=== PATIENT | male | born 1940 | race Caucasian/White ===

== ENCOUNTER 2017-10-16 18:07 | Observation (INO) | payer OTHER, MEDICARE ==
[~2017-10-16] VITALS: Ht 177.8 cm; Wt 100.0 kg
[2017-10-16] MEDS ORDERED: fentaNYL INJECTION 100 MCG/2 ML AMP ONE ×2 (18:15→18:42)
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
[2017-10-16] MEDS ORDERED: fentaNYL INJECTION 100 MCG/2 ML AMP IVP ONE ×2 (18:45)
[2017-10-16 19:17] LABS: HEMOGLOBIN 13.4 G/DL (13.3-17.7); MEAN PLATELET VOLUME 10.1 FL (7.4-10.4); RED BLOOD COUNT 4.5 10^6/uL (4.35-5.85); RED CELL DISTRIBUTION WIDTH 14.9 % (10.0-14.5)
[2017-10-16 19:28] LABS: ALANINE AMINOTRANSFERASE 38 U/L (0-55); ALBUMIN 3.9 GM/DL (3.2-4.5); ALKALINE PHOSPHATASE 97 U/L (40-136); BILIRUBIN,DIRECT 0.3 MG/DL (0.0-0.3); BILIRUBIN,INDIRECT 0.5 MG/DL; BILIRUBIN,TOTAL 0.8 MG/DL (0.1-1.0); BUN/CREATININE RATIO 15; CALCIUM 8.7 MG/DL (8.5-10.1); CARBON DIOXIDE 25 MMOL/L (21-32); CHLORIDE 103 MMOL/L (98-107); CREATININE SERUM 1.11 MG/DL (0.60-1.30); GFR ESTIMATED > 60; GLUCOSE 115 MG/DL (70-105); POTASSIUM 3.7 MMOL/L (3.6-5.0); SODIUM 138 MMOL/L (135-145); TOTAL PROTEIN 6.2 GM/DL (6.4-8.2)
[2017-10-16] MEDS ORDERED: LIDOCAINE 1% INJ 20 ML 20 ML VIAL ONE (19:53)
[2017-10-16] MEDS ORDERED: NS (IVPB) 100 ML ONE (19:54)
[2017-10-16] MEDS ORDERED: KETOROLAC 30 MG/ML VIAL IVP ONE (20:00)
[2017-10-16] MEDS ORDERED: LIDOCAINE 1% INJ 20 ML 20 ML VIAL INJ ONE (20:00)
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
[2017-10-16] MEDS ORDERED: NS 250 ML (IVPB) BAG IV ONE (21:00)
[2017-10-16] MEDS ORDERED: IOHEXOL 350 MG/ML 100 ML (OMNIPAQUE 350) VIAL IV ONE (21:00)
[2017-10-16] MEDS: CATHETER FLUSH 10 ML SYR IV PRN (21:00)
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
--- NOTE | 2017-10-16 21:08 | Diagnostic Imaging Report ---
PROCEDURE: CT lumbar spine without contrast. TECHNIQUE: Multiple contiguous axial images were obtained through the lumbar spine without the use of intravenous contrast. Sagittal and coronal reformations were then performed. INDICATION: Back pain There are no prior studies available for comparison. The reconstructed sagittal images show severe degenerative disc and bony disease throughout the lumbar spine. Specifically, there is narrowing of the disc spaces at every level with relative sparing of the L1-2 level. There is also sclerosis of the opposing surfaces of L2-L3, L4, L5, and S1. In addition, the axial images suggest that there is spinal stenosis at L2-3, L3-4, L4-5 and L5-S1. There is also narrowing of the neural foramen bilaterally at these levels, particularly at L5-S1. There is no significant central stenosis or nerve root encroachment at the L1-2 level. There does appear to be a mild (20%) compression deformity of L2. The age of this injury is indeterminate but this could be subacute in nature. If further evaluation is desired, then MRI would be recommended. No other acute bony abnormality is appreciated. There is no sign of a paraspinal mass. IMPRESSION: 1. 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 There is spinal stenosis at every level with the L5-S1 level the most significantly affected. 2. There is a mild compression deformity of L1. The age of this injury is indeterminate but this could be subacute in nature. If further study is desired, then MRI would be recommended. 3. There is no acute bony abnormality noted otherwise. Dictated by: Dictated on workstation # [id number]
[2017-10-16] MEDS ORDERED: HYDROmorphone 1 MG/ML (DILAUDID) 1 ML SYRINGE IV ONE (21:30)
--- NOTE | 2017-10-16 21:47 | Diagnostic Imaging Report ---
PROCEDURE: CT abdomen and pelvis with contrast. TECHNIQUE: Multiple contiguous axial images were obtained through the abdomen and pelvis after administration of intravenous contrast. INDICATION: Left-sided back pain. COMPARISON: There are no previous CT examinations available for comparison. FINDINGS: The liver is borderline enlarged. There is no focal mass involving the liver and the biliary tree does not appear abnormally distended. The gallbladder is surgically absent. The spleen, pancreas, adrenals, kidneys, aorta and inferior vena cava show no sign of an acute NV. The stomach is not well-distended and consequently difficult to assess. There is no pelvic mass or free fluid collection noted. There is diverticulosis of the sigmoid colon but there is no sign of acute diverticulitis. The urinary bladder and prostate gland are grossly unremarkable. The appendix was not well-visualized but there are no indirect signs of acute appendicitis. There are postsurgical changes involving each inguinal canal. There is no sign of a recurrent hernia. The bone windows showed no evidence for a fracture or for a destructive lesion. There is severe degenerative disc and bony disease involving the lumbar spine. The lung bases are clear. IMPRESSION: 1. There is no acute abnormality of the abdomen or pelvis. 2. The liver is borderline enlarged. 3. There is diverticulosis of the sigmoid colon without evidence for acute diverticulitis. Dictated by: Dictated on workstation # [id number]
[2017-10-16 22:29] LABS: BILIRUBIN,URINE NEGATIVE (NEGATIVE); CLARITY,URINE CLEAR; COLOR,URINE YELLOW; GLUCOSE, URINE (UA) NEGATIVE (NEGATIVE); KETONES,URINE NEGATIVE (NEGATIVE); LEUKOCYTE ESTERASE ,URINE NEGATIVE (NEGATIVE); NITRITE,URINE NEGATIVE (NEGATIVE); PH,URINE 5 (5-9); PROTEIN,URINE NEGATIVE (NEGATIVE); UROBILINOGEN,URINE NORMAL (NORMAL)
[2017-10-16 22:42] LABS: BACTERIA,URINE NEGATIVE /HPF; SQUAMOUS EPITHELIAL CELL,UR 0-2 /HPF
[2017-10-16] MEDS ORDERED: KETOROLAC 15 MG/ML VIAL IVP PRN (23:45)
[2017-10-16] MEDS ORDERED: HYDROmorphone 1 MG/ML (DILAUDID) 1 ML SYRINGE IV PRN (23:45)
[2017-10-16] MEDS ORDERED: ONDANSETRON 4 MG/2 ML (SDV) Z0FRAN IV PRN (23:45)
[2017-10-16] MEDS ORDERED: ACETAMINOPHEN 500 MG TAB (TYLENOL) PO PRN (23:45)
[2017-10-17] MEDS: 1/2 NS W/KCL 20 MEQ/L 1,000 ML IV SCH ×3 (00:10→21:28)
[2017-10-17 00:11] VITALS: BP 174/77
[2017-10-17] MEDS: HYDROmorphone 1 MG/ML (DILAUDID) 1 ML SYRINGE IV PRN ×4 (01:47→21:27)
[2017-10-17] MEDS ORDERED: NORT25CA PO (02:41)
[2017-10-17] MEDS ORDERED: HYDR25TA4 PO (02:41)
[2017-10-17] MEDS ORDERED: B-12 INJECTION (02:41)
[2017-10-17] MEDS ORDERED: ATOR40TA70 PO (02:41)
[2017-10-17] MEDS ORDERED: ROPI5TAB PO (02:41)
[2017-10-17] MEDS ORDERED: ASPI-999 PO (02:41)
[2017-10-17] MEDS ORDERED: DULO60CA6 PO (02:41)
[2017-10-17] MEDS ORDERED: TAMS0.4C2 PO (02:41)
[2017-10-17] MEDS ORDERED: CLOP75TA28 PO (02:41)
[2017-10-17] MEDS ORDERED: TIZA4CAP8 PO (02:41)
[2017-10-17] MEDS ORDERED: HYDR-34 PO (02:41)
[2017-10-17] MEDS ORDERED: LAMO100T PO (02:41)
[2017-10-17] MEDS ORDERED: GABA600T2 PO ×3 (02:41)
[2017-10-17] MEDS ORDERED: UBID200C16 PO (02:41)
[2017-10-17] MEDS ORDERED: PANT40TA3 PO (02:41)
[2017-10-17] MEDS ORDERED: NORT10CA PO (02:44)
[2017-10-17 04:05] VITALS: BP 132/63
[2017-10-17 06:03] LABS: BASOPHILS % (AUTO) 0 % (0-10); EOSINOPHILS # (AUTO) 0.2 10^3/uL (0.0-0.3); EOSINOPHILS % (AUTO) 2 % (0-10); HEMATOCRIT 42 % (40-54); HEMOGLOBIN 14.1 G/DL (13.3-17.7); LYMPHOCYTES # (AUTO) 1.9 X 10^3 (1.0-4.0); LYMPHOCYTES % (AUTO) 22 % (12-44); MEAN CORPUSCULAR HEMOGLOBIN 30 PG (25-34); MEAN CORPUSCULAR HGB CONC 34 G/DL (32-36); MEAN CORPUSCULAR VOLUME 89 FL (80-99); MONOCYTES # (AUTO) 0.6 X 10^3 (0.0-1.0); MONOCYTES % (AUTO) 7 % (0-12); NEUTROPHILS # (AUTO) 5.9 X 10^3 (1.8-7.8); NEUTROPHILS % (AUTO) 69 % (42-75); PLATELET COUNT 186 10^3/uL (130-400); RED BLOOD COUNT 4.71 10^6/uL (4.35-5.85); RED CELL DISTRIBUTION WIDTH 14.7 % (10.0-14.5); WHITE BLOOD COUNT 8.6 10^3/uL (4.3-11.0)
[2017-10-17 06:25] LABS: BUN/CREATININE RATIO 15; CALCIUM 8.6 MG/DL (8.5-10.1); CARBON DIOXIDE 27 MMOL/L (21-32); CHLORIDE 100 MMOL/L (98-107); GFR ESTIMATED > 60; GLUCOSE 84 MG/DL (70-105); POTASSIUM 4.4 MMOL/L (3.6-5.0); SODIUM 137 MMOL/L (135-145)
[2017-10-17 08:00] VITALS: BP 132/68
[2017-10-17] MEDS ORDERED: LAMO200T2 PO (10:53)
[2017-10-17] MEDS ORDERED: DULO60CA58 PO (10:53)
[2017-10-17] MEDS ORDERED: TIZA4TAB3 PO (10:53)
[2017-10-17] MEDS ORDERED: DULO30CA48 PO (10:53)
[2017-10-17] MEDS ORDERED: CNC1KV IM (10:53)
[2017-10-17] MEDS ORDERED: HYDR-3816 PO (11:20)
[2017-10-17] MEDS ORDERED: CLON2TAB12 PO (11:20)
[2017-10-17] MEDS ORDERED: IBUP-30 PO (11:20)
[2017-10-17 12:00] VITALS: BP 156/72
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
[2017-10-17] MEDS: CATHETER FLUSH 10 ML SYR IV PRN (13:30)
[2017-10-17] MEDS ORDERED: GABAPENTIN 600 MG (NEURONTIN) TAB ONE (13:35)
[2017-10-17] MEDS: GABAPENTIN 600 MG (NEURONTIN) TAB PO SCH (13:39)
--- NOTE | 2017-10-17 14:08 | Physical Therapy Progress Note ---
Therapy Progress Note PT in to fit patient for TLSO due to T11 compression fracture and back pain. Patient educated and was able to perform donning and doffing back brace and tighten straps for comfort. Patient reports relief with brace in place when OOB. Patient to dismiss this week and return to . Patient is independent with bed mobility and ambulation without difficulty. 1 visit Orthofit 14 min GCodes [facility] Davis [facility] PT Oct 17, 2017 14:08
[2017-10-17 16:15] VITALS: BP 144/69
[2017-10-17] MEDS ORDERED: TAMSULOSIN 0.4 MG (FLOMAX) CAP PO ONE (17:13)
[2017-10-17] MEDS ORDERED: TAMSULOSIN 0.4 MG (FLOMAX) CAP PO SCH (18:00)
[2017-10-17 20:15] VITALS: BP 168/79
[2017-10-17] MEDS ORDERED: GABAPENTIN 600 MG (NEURONTIN) TAB PO SCH (21:00)
[2017-10-17] MEDS ORDERED: ATORVASTATIN 40 MG (LIPITOR) TABLET PO SCH (21:00)
[2017-10-18 00:03] VITALS: BP 174/73
[2017-10-18 04:09] VITALS: BP 165/71
[2017-10-18] MEDS: 1/2 NS W/KCL 20 MEQ/L 1,000 ML IV SCH (06:20)
[2017-10-18] MEDS ORDERED: PANTOPRAZOLE 40 MG (PROTONIX) TAB PO SCH (07:00)
[2017-10-18 08:00] VITALS: BP 142/70
[2017-10-18] MEDS ORDERED: TAMSULOSIN 0.4 MG (FLOMAX) CAP PO SCH (08:00)
[2017-10-18] MEDS ORDERED: CLOPIDOGREL 75 MG (PLAVIX) TABLET PO SCH (09:00)
[2017-10-18] MEDS ORDERED: ASPIRIN 81 MG CHEW (CHILDREN'S ASA) PO SCH (09:00)
[2017-10-18] MEDS: GABAPENTIN 600 MG (NEURONTIN) TAB PO SCH (09:16)
[2017-10-18] MEDS ORDERED: HYDROmorphone 2 MG/ML VIAL (DILAUDID) IV PRN ×2 (10:15)
[2017-10-18] MEDS ORDERED: OXYC-197 PO (10:43)
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
== END 2017-10-18 10:47 | disposition home or self-care (01) ==
LOC: ER 18:08 → EDBD 18:08 → UNDOADMOB 23:05 → 4TH 23:05 → UNDODISOB 10-18 11:42
PROVIDERS: ADMIT Internal Medicine; ATTEND Internal Medicine
DX: G89.11 Acute pain due to trauma (principal); S32.020A Wedge compression fracture of second lumbar vertebra, initial encounter for closed fracture; K21.9 Gastro-esophageal reflux disease without esophagitis; F32.9 Major depressive disorder, single episode, unspecified; G25.81 Restless legs syndrome; I25.10 Atherosclerotic heart disease of native coronary artery without angina pectoris; Z95.5 Presence of coronary angioplasty implant and graft; M48.061 Spinal stenosis, lumbar region without neurogenic claudication; V87.7XXA Person injured in collision between other specified motor vehicles (traffic), initial encounter
CPT/HCPCS: 36415; 70450; 71045; 72125; 72131; 72170; 74177; 80048; 80076; 80320; 81000; 85025; 85027; 86850; 86900; 86901; 93041; G0378